=== PATIENT | female | born 1965 | race Caucasian/White ===

== ENCOUNTER 2018-01-27 17:24 | Emergency (ER) | payer BC ==
[~2018-01-27] VITALS: Ht 162.6 cm; Wt 109.5 kg
[2018-01-27 18:09] LABS: HEMATOCRIT 37.4 % (36.0-46.0); HEMOGLOBIN 12.6 G/DL (11.9-15.5); MCH 29.8 PG (29.0-34.0); MCHC 33.7 G/DL (30.0-36.0); MCV 88.4 FL (83-99); PLATELET COUNT 135 K/uL (156-360); RBC DIS.WIDTH-SD 42.2 % (39-53); RED BLOOD COUNT 4.23 M/uL (3.80-5.20); WHITE BLOOD COUNT 4.8 K/uL (4.1-10.2)
[2018-01-27 18:17] LABS: ALBUMIN 4.4 g/dL (3.2-4.8); CHLORIDE 110 mEq/L (99-109); SODIUM 145 mEq/L (136-147)
[2018-01-27 18:19] LABS: GLUCOSE 90 mg/dL (70-99)
[2018-01-27 18:20] LABS: TOTAL PROTEIN 7.1 g/dL (6.4-8.3)
[2018-01-27 18:21] LABS: TOTAL BILIRUBIN 0.4 mg/dL (0.0-1.0)
[2018-01-27 18:23] LABS: ALKALINE PHOSPHATASE 72 IU/L (3-129); GFR ESTIMATE (CALCULATED) > 59 mL/min/
[2018-01-27 18:24] LABS: UREA NITROGEN (BUN) 20 mg/dL (9-23)
[2018-01-27 18:25] LABS: AST (GOT) 26 IU/L (2-34)
[2018-01-27 18:26] LABS: ALT (GPT) 34 IU/L (3-49)
[2018-01-27 18:48] LABS: APPEARANCE CLEAR ((CLEAR)); BILIRUBIN NEGATIVE; BLOOD NEGATIVE; COLOR STRAW ((YELLOW)); GLUCOSE (STRIP) NEGATIVE; KETONES NEGATIVE; LEUKOCYTES NEGATIVE; NITRITE NEGATIVE; PROTEIN (STRIP) NEGATIVE; SPECIFIC GRAVITY 1.011 (1.000-1.030); UCUL ADDED? NO; UROBILINOGEN 0.2 MG/DL (0.2-1.0)
[2018-01-27] MEDS ORDERED: ANTIVERT25 MG PO (19:54)
[2018-01-27] MEDS ORDERED: VIBRAMYCIN100 MG PO (19:54)
[2018-01-27] MEDS ORDERED: ZOFRAN4 MG PO (19:54)
[2018-01-27 20:06] VITALS: BP 148/97
[2018-01-28 10:08] LABS: LYME DISEASE SEROLOGY SCREEN NEGATIVE (NEGATIVE)
== END 2018-01-27 20:07 | disposition home or self-care (01) ==
LOC: EME 17:24 → RME 17:24
PROVIDERS: Nurse Practitioner Family
DX: R21 Rash and other nonspecific skin eruption (principal); Z86.19 Personal history of other infectious and parasitic diseases; R42 Dizziness and giddiness; R94.02 Abnormal brain scan; Z98.1 Arthrodesis status; Z86.018 Personal history of other benign neoplasm
CPT/HCPCS: 70450; 80053; 81003; 85027; 86618; 99281; 99284